=== PATIENT | female | born 1955 | race Caucasian/White ===

== ENCOUNTER → 2019-10-14 | Outpatient (CLI) | payer BC ==
[~2019-10-14] MED LIST: ALBU8.5H8 INH; BUDE10.2 INH; DIPH25CA61 PO; MULT-758 PO; Prednisone PO; TIOT18CA INH; albuterol INH
== END | disposition home or self-care (01) ==
LOC: STAR 10:59
PROVIDERS: ATTEND Internal Medicine
DX: Z01.818 Encounter for other preprocedural examination (principal); I51.7 Cardiomegaly; R13.10 Dysphagia, unspecified
CPT/HCPCS: 93005

== ENCOUNTER 2019-10-19 07:18 | Day surgery (SDC) | payer BC ==
[~2019-10-19] VITALS: Ht 160 cm; Wt 73.5 kg
[2019-10-19] MEDS ORDERED: LACTATED RINGERS 1,000 ML IV SCH (08:22)
[2019-10-19 08:23] VITALS: BP 142/63
[2019-10-19] MEDS ORDERED: PROPOFOL 10 MG/ML, 50ML ONE (09:10)
[2019-10-19] MEDS ORDERED: PROPOFOL 10 MG/ML, 20ML ONE (09:10)
[2019-10-19] MEDS ORDERED: EPHEDRINE 50 MG/ML, 1ML IVPush PRN (09:30)
[2019-10-19] MEDS ORDERED: MIDAZOLAM 1 MG/ML, 2ML IV PRN (09:30)
[2019-10-19] MEDS ORDERED: PROMETHAZINE 25 MG/ML, 1ML IV PRN (09:30)
[2019-10-19] MEDS ORDERED: FENTANYL PF 100 MCG/2ML IV PRN (09:30)
[2019-10-19] MEDS ORDERED: ALBUTEROL/IPRATROPIUM 2.5MG/0.5MG, 3 ML NPPB PRN (09:30)
[2019-10-19] MEDS ORDERED: DIAZEPAM 5 MG/ML, 2ML IVPush PRN (09:30)
[2019-10-19] MEDS ORDERED: DIPHENHYDRAMINE 50 MG/ML, 1ML IVPush PRN (09:30)
[2019-10-19] MEDS ORDERED: ONDANSETRON 2MG/ML, 2ML IV PRN (09:30)
[2019-10-19] MEDS ORDERED: EPHEDRINE 50 MG/ML, 1ML IM PRN (09:30)
[2019-10-19] MEDS ORDERED: ONDANSETRON ODT 8 MG PO PRN (09:30)
[2019-10-19] MEDS ORDERED: METOPROLOL 1 MG/ML, 5ML IV PRN (09:30)
[2019-10-19] MEDS ORDERED: hydrALAzine 20 MG/ML, 1ML IV PRN (09:30)
== END 2019-10-19 11:15 | disposition home or self-care (01) ==
LOC: OUT 07:18
PROVIDERS: ATTEND Internal Medicine
DX: Z12.11 Encounter for screening for malignant neoplasm of colon (principal); K57.30 Diverticulosis of large intestine without perforation or abscess without bleeding; K29.50 Unspecified chronic gastritis without bleeding; K21.9 Gastro-esophageal reflux disease without esophagitis; J30.2 Other seasonal allergic rhinitis; K44.9 Diaphragmatic hernia without obstruction or gangrene; K64.9 Unspecified hemorrhoids; F17.210 Nicotine dependence, cigarettes, uncomplicated; J44.9 Chronic obstructive pulmonary disease, unspecified; F19.90 Other psychoactive substance use, unspecified, uncomplicated; Z99.81 Dependence on supplemental oxygen; Z90.49 Acquired absence of other specified parts of digestive tract; Z88.0 Allergy status to penicillin; Z88.8 Allergy status to other drugs, medicaments and biological substances; Z88.6 Allergy status to analgesic agent; Z88.5 Allergy status to narcotic agent
CPT/HCPCS: 43239; 45378; 71045; 88305; J2704

== ENCOUNTER → 2019-10-25 | Outpatient (CLI) | payer BC | END | disposition home or self-care (01) | LOC: CFH 13:26 | PROVIDERS: ATTEND Internal Medicine | DX: Z12.31 Encounter for screening mammogram for malignant neoplasm of breast (principal); Z12.2 Encounter for screening for malignant neoplasm of respiratory organs; N64.89 Other specified disorders of breast; F41.9 Anxiety disorder, unspecified; F32.9 Major depressive disorder, single episode, unspecified; K21.9 Gastro-esophageal reflux disease without esophagitis; J96.11 Chronic respiratory failure with hypoxia; J43.2 Centrilobular emphysema; I25.10 Atherosclerotic heart disease of native coronary artery without angina pectoris; J98.4 Other disorders of lung; F17.210 Nicotine dependence, cigarettes, uncomplicated; Z88.0 Allergy status to penicillin; Z88.5 Allergy status to narcotic agent | CPT/HCPCS: 77067; G0297 ==

== ENCOUNTER 2019-12-04 22:25 | Inpatient (IN) | payer BC ==
[~2019-12-04] VITALS: Ht 165.1 cm; Wt 78.7 kg
[2019-12-04] MEDS ORDERED: MAGNESIUM SULFATE PMX 2GM/50ML 50 ML ONE (22:35)
[2019-12-04] MEDS ORDERED: methylPREDNISolone SOD SUCC 125 MG/2 ML ONE (22:35)
[2019-12-04] MEDS ORDERED: MONT10TA6 PO (22:59)
[2019-12-04] MEDS ORDERED: TINAZIDINE (22:59)
[2019-12-04] MEDS ORDERED: MAGNESIUM SULFATE PMX 2GM/50ML 50 ML IVPB ONE (23:00)
[2019-12-04] MEDS ORDERED: methylPREDNISolone SOD SUCC 125 MG/2 ML IV ONE (23:00)
[2019-12-04] MEDS ORDERED: SODIUM CHLORIDE FLUSH 10ML SYR IVF ONE (23:00)
[2019-12-04] MEDS ORDERED: CEFTRIAXONE PMX 1GM/50ML 50 ML ONE (23:09)
[2019-12-04 23:17] LABS: RAPID INFLUENZA A Negative (Negative); RAPID INFLUENZA B Negative (Negative)
[2019-12-04 23:17] LABS: BASOPHILS # (AUTO) 0.03 x10^3/uL (0-0.1); BASOPHILS % (AUTO) 0 % (0-1); EOSINOPHILS # (AUTO) 0.06 x10^3/uL (0-0.4); EOSINOPHILS % (AUTO) 1 % (1-7); LYMPHOCYTES # (AUTO) 1.18 x10^3/uL (1-3.4); LYMPHOCYTES % (AUTO) 9 % (22-44); MD NO; MEAN CORPUSCULAR HEMOGLOBIN 30.1 pg (27.0-34.8); MEAN CORPUSCULAR HGB CONC 32.8 g/dL (32.4-35.8); MEAN CORPUSCULAR VOLUME 91.6 fL (80-100); MEAN PLATELET VOLUME 7.3 fL (7.4-10.4); MONOCYTES # (AUTO) 1.36 x10^3/uL (0.2-0.8); MONOCYTES % (AUTO) 10 % (2-9); NEUTROPHILS # (AUTO) 10.41 x10^3/uL (1.8-6.8); NEUTROPHILS % (AUTO) 80 % (42-75); PLATELET COUNT 246 x10^3/uL (130-400); RED CELL DISTRIBUTION WIDTH 13.9 % (9.6-15.2)
[2019-12-04] MEDS: ALBUTEROL/IPRATROPIUM 2.5MG/0.5MG, 3 ML NPPB SCH ×2 (23:19→23:28)
[2019-12-04] MEDS ORDERED: ALBUTEROL/IPRATROPIUM 2.5MG/0.5MG, 3 ML ONE (23:21)
[2019-12-04] MEDS ORDERED: ONDANSETRON 2MG/ML, 2ML ONE (23:23)
--- NOTE | 2019-12-04 23:28 | NUR ---
PT STATES SHE FEELS "1%" BETTER. PT STATES SHE HAS NEVER BEEN INTUBATED. IS TIRED. PT COMPLAINING OF NAUSEA. INFORMED.
--- NOTE | 2019-12-04 23:29 | NUR ---
PT REQUESTING ANOTHER BREATHING TX. SECOND DUONEB STARTED AT THIS TIME.
[2019-12-04 23:30] LABS: ALANINE AMINOTRANSFERASE 84 U/L (12-78); ALBUMIN 3.4 g/dL (3.4-5.0); ANION GAP 5 mmol/L (5-15); CALCIUM 9.2 mg/dL (8.5-10.1); CHLORIDE 100 mmol/L (98-107); CREATININE 0.51 mg/dL (0.55-1.02)
[2019-12-04] MEDS ORDERED: CEFTRIAXONE PMX 1GM/50ML 50 ML IVPB ONE (23:30)
[2019-12-04] MEDS ORDERED: AZITHROMYCIN 500 MG in SODIUM CHLORIDE 0.9% 250 ML IVPB ONE (23:30)
[2019-12-04] MEDS ORDERED: ONDANSETRON 2MG/ML, 2ML IVPush ONE (23:30)
[2019-12-04 23:33] LABS: ALKALINE PHOSPHATASE 128 U/L (45-117); BILIRUBIN,TOTAL 0.7 mg/dL (0.2-1.0); TOTAL PROTEIN 7.6 g/dL (6.4-8.2); TROPONIN I < 0.015 ng/mL (0.000-0.045)
--- NOTE | 2019-12-05 00:18 | NUR ---
PT STATES SHE IS FEELING " A LITTLE BETTER". PT APPEARS TO BE DOING MODERATELY BETTER THAN INITIAL PRESENTATION. POC DISCUSSED. PT DENIES FURTHER NEEDS AT THIS TIME.
--- NOTE | 2019-12-05 00:37 | NUR ---
CALLED [facility] PER PT REQUEST. NO ANSWER. LEFT MESSAGE.
--- NOTE | 2019-12-05 00:53 | NUR ---
PT GIVEN CUP OF WATER PER MD LIRIANO. POC DISCUSSED. PT DENIES FURTHER NEEDS AT THIS TIME.
[2019-12-05] MEDS ORDERED: SODIUM CHLORIDE FLUSH 10ML SYR IVF PRN (01:00)
--- NOTE | 2019-12-05 01:29 | NUR ---
PT WITH NOW INCREASED WOB AND INCREASED SOB. THIS RN CONSULTED WITH [facility] AND IT WAS AGREED TO HOLD THE PT IN THE ED AT THIS TIME. RT CALLED FOR REPEAT BREATHING TX.
[2019-12-05] MEDS ORDERED: POLYETHYLENE GLYCOL 17 GM PACKET PO PRN (01:30)
[2019-12-05] MEDS ORDERED: ONDANSETRON 2MG/ML, 2ML IVPush PRN (01:30)
[2019-12-05] MEDS: CEFTRIAXONE PMX 1GM/50ML 50 ML IV SCH ×2 (01:30→03:29)
[2019-12-05] MEDS ORDERED: BISACODYL 10 MG SUPP PR PRN (01:30)
[2019-12-05] MEDS: AZITHROMYCIN 500 MG in SODIUM CHLORIDE 0.9% 250 ML IV SCH (01:30)
[2019-12-05] MEDS ORDERED: DOCUSATE 100 MG CAPSULE PO PRN (01:30)
[2019-12-05] MEDS ORDERED: methylPREDNISolone SOD SUCC 125 MG/2 ML IVPush SCH (01:30)
[2019-12-05] MEDS ORDERED: PROMETHAZINE 25 MG/ML, 1ML IM PRN (01:30)
[2019-12-05] MEDS: SODIUM CHLORIDE 0.9% 1,000 ML IV SCH ×2 (01:57→16:43)
--- NOTE | 2019-12-05 02:01 | NUR ---
PT ASSITED TO BEDSIDE COMMODE AND BACK INTO BED. PT DID DESAT TO 74% WITH INCREASED WOB. PT NOW BACK IN BED SATS INCREASED TO 94%. [facility] INFORMED. [facility] TO RECHECK PT.
[2019-12-05 02:12] LABS: TROPONIN I < 0.015 ng/mL (0.000-0.045)
--- NOTE | 2019-12-05 02:19 | NUR ---
[facility] RECHECKED PT. CHANGE ADMISSION TO ICU.
--- NOTE | 2019-12-05 02:41 | NUR ---
report called to icu nursesolange jones
[2019-12-05] MEDS ORDERED: ACETAMINOPHEN 325 MG TABLET ONE (03:39)
[2019-12-05] MEDS: ENOXAPARIN 40 MG/0.4 ML SQ SCH (03:54)
[2019-12-05] MEDS: ACETAMINOPHEN 325 MG TABLET PO PRN ×4 (03:55→23:11)
[2019-12-05 04:00] VITALS: BP 134/57
[2019-12-05] MEDS: methylPREDNISolone SOD SUCC 125 MG/2 ML IVPush SCH ×4 (04:57→23:11)
[2019-12-05] MEDS: ALBUTEROL/IPRATROPIUM 2.5MG/0.5MG, 3 ML NPPB SCH ×5 (06:00→22:50)
[2019-12-05 08:28] LABS: TROPONIN I < 0.015 ng/mL (0.000-0.045)
[2019-12-05] MEDS: BUDESONIDE 0.5 MG/2 ML INHA NPPB SCH ×2 (09:00→19:48)
[2019-12-05] MEDS: PANTOPRAZOLE 40MG TABLET PO SCH (10:00)
[2019-12-05] MEDS: GUAIFENESIN/DM 200-20MG, 10ML UDC PO PRN ×2 (10:05→18:09)
[2019-12-05] MEDS: GUAIFENESIN ER 600 MG TABLET PO SCH ×2 (12:23→20:33)
[2019-12-05] MEDS: MONTELUKAST 10 MG TABLET PO SCH (20:33)
[2019-12-06] MEDS: ALBUTEROL/IPRATROPIUM 2.5MG/0.5MG, 3 ML NPPB SCH ×7 (01:43→22:17)
[2019-12-06] MEDS: AZITHROMYCIN 500 MG in SODIUM CHLORIDE 0.9% 250 ML IV SCH (02:10)
[2019-12-06 04:38] LABS: BASOPHILS % (AUTO) 0 % (0-1); EOSINOPHILS % (AUTO) 0 % (1-7); LYMPHOCYTES # (AUTO) 0.31 x10^3/uL (1-3.4); LYMPHOCYTES % (AUTO) 3 % (22-44); MD NO; MEAN CORPUSCULAR HEMOGLOBIN 29.9 pg (27.0-34.8); MEAN CORPUSCULAR HGB CONC 32.5 g/dL (32.4-35.8); MEAN CORPUSCULAR VOLUME 92.2 fL (80-100); MEAN PLATELET VOLUME 7.7 fL (7.4-10.4); MONOCYTES # (AUTO) 0.44 x10^3/uL (0.2-0.8); MONOCYTES % (AUTO) 4 % (2-9); NEUTROPHILS % (AUTO) 93 % (42-75); PLATELET COUNT 237 x10^3/uL (130-400); RED BLOOD COUNT 3.71 x10^6/uL (3.82-5.3); RED CELL DISTRIBUTION WIDTH 13.9 % (9.6-15.2)
[2019-12-06 04:46] LABS: CHLORIDE 103 mmol/L (98-107)
[2019-12-06 04:52] LABS: ALANINE AMINOTRANSFERASE 94 U/L (12-78); ALBUMIN 2.7 g/dL (3.4-5.0); ALKALINE PHOSPHATASE 108 U/L (45-117); ANION GAP 3 mmol/L (5-15); BILIRUBIN,TOTAL 0.3 mg/dL (0.2-1.0); CALCIUM 9.2 mg/dL (8.5-10.1); CREATININE 0.45 mg/dL (0.55-1.02); TOTAL PROTEIN 6.6 g/dL (6.4-8.2)
[2019-12-06] MEDS: ENOXAPARIN 40 MG/0.4 ML SQ SCH (05:01)
[2019-12-06] MEDS: methylPREDNISolone SOD SUCC 125 MG/2 ML IVPush SCH ×2 (05:01→20:22)
[2019-12-06] MEDS: SODIUM CHLORIDE 0.9% 1,000 ML IV SCH (05:01)
[2019-12-06] MEDS: ACETAMINOPHEN 325 MG TABLET PO PRN (05:02)
[2019-12-06] MEDS ORDERED: FUROSEMIDE 20 MG/2 ML IV ONE (07:00)
[2019-12-06] MEDS: PANTOPRAZOLE 40MG TABLET PO SCH (08:52)
[2019-12-06] MEDS: GUAIFENESIN ER 600 MG TABLET PO SCH ×2 (08:53→20:21)
[2019-12-06] MEDS: BUDESONIDE 0.5 MG/2 ML INHA NPPB SCH ×2 (09:00→17:55)
[2019-12-06] MEDS ORDERED: SODIUM CHLORIDE NASAL SPRAY 45ML BOTTLE NAS PRN (09:30)
[2019-12-06] MEDS ORDERED: MAGNESIUM HYDROXIDE 8%, 30ML UDC PO PRN (09:30)
[2019-12-06] MEDS: NICOTINE 21 MG/24 HR PATCH.TD24 TD SCH (09:43)
[2019-12-06] MEDS: INSULIN LISPRO 100 UNITS/ML, PEN SQ-INSULIN SCH ×4 (10:25→20:22)
[2019-12-06] MEDS: GUAIFENESIN/DM 200-20MG, 10ML UDC PO PRN (13:34)
[2019-12-06] MEDS: CEFTRIAXONE PMX 1GM/50ML 50 ML IV SCH (14:27)
[2019-12-06 17:03] VITALS: BP 150/81
[2019-12-06 18:53] VITALS: BP 139/74
[2019-12-06] MEDS: MONTELUKAST 10 MG TABLET PO SCH (20:21)
[2019-12-07] MEDS: AZITHROMYCIN 500 MG in SODIUM CHLORIDE 0.9% 250 ML IV SCH (01:18)
[2019-12-07 01:22] VITALS: BP 140/72
[2019-12-07] MEDS: ACETAMINOPHEN 325 MG TABLET PO PRN (01:27)
[2019-12-07] MEDS: ALBUTEROL/IPRATROPIUM 2.5MG/0.5MG, 3 ML NPPB SCH ×5 (02:33→19:51)
[2019-12-07] MEDS: ENOXAPARIN 40 MG/0.4 ML SQ SCH (05:05)
[2019-12-07 06:21] LABS: ALANINE AMINOTRANSFERASE 104 U/L (12-78); ALKALINE PHOSPHATASE 119 U/L (45-117); BILIRUBIN,TOTAL 0.3 mg/dL (0.2-1.0); CALCIUM 9.3 mg/dL (8.5-10.1); CREATININE 0.54 mg/dL (0.55-1.02); TOTAL PROTEIN 6.8 g/dL (6.4-8.2)
[2019-12-07 06:29] LABS: ANION GAP 4 mmol/L (5-15); CHLORIDE 103 mmol/L (98-107)
[2019-12-07] MEDS: METOPROLOL TARTRATE 25 MG TAB PO SCH ×2 (06:33→16:13)
[2019-12-07 07:11] VITALS: BP 151/81
[2019-12-07] MEDS: GUAIFENESIN ER 600 MG TABLET PO SCH ×2 (07:37→21:01)
[2019-12-07] MEDS: methylPREDNISolone SOD SUCC 125 MG/2 ML IVPush SCH ×2 (07:37→21:01)
[2019-12-07] MEDS: INSULIN LISPRO 100 UNITS/ML, PEN SQ-INSULIN SCH ×4 (07:37→20:57)
[2019-12-07] MEDS: PANTOPRAZOLE 40MG TABLET PO SCH (07:37)
[2019-12-07] MEDS: NICOTINE 21 MG/24 HR PATCH.TD24 TD SCH (07:38)
[2019-12-07] MEDS: BUDESONIDE 0.5 MG/2 ML INHA NPPB SCH ×2 (08:02→19:51)
[2019-12-07] MEDS: CEFTRIAXONE PMX 1GM/50ML 50 ML IV SCH (14:43)
[2019-12-07] MEDS: MONTELUKAST 10 MG TABLET PO SCH (21:01)
[2019-12-07 21:06] VITALS: BP 141/66
[2019-12-08 00:41] VITALS: BP 139/72
[2019-12-08] MEDS: AZITHROMYCIN 500 MG in SODIUM CHLORIDE 0.9% 250 ML IV SCH (01:41)
[2019-12-08] MEDS: ALBUTEROL/IPRATROPIUM 2.5MG/0.5MG, 3 ML NPPB PRN (01:50)
[2019-12-08] MEDS: METOPROLOL TARTRATE 25 MG TAB PO SCH ×2 (05:17→17:02)
[2019-12-08] MEDS: ENOXAPARIN 40 MG/0.4 ML SQ SCH (05:17)
[2019-12-08] MEDS: INSULIN LISPRO 100 UNITS/ML, PEN SQ-INSULIN SCH ×4 (07:00→20:28)
[2019-12-08 07:09] VITALS: BP 133/70
[2019-12-08] MEDS: methylPREDNISolone SOD SUCC 125 MG/2 ML IVPush SCH ×2 (08:44→20:28)
[2019-12-08] MEDS: FUROSEMIDE 20 MG/2 ML IV SCH (08:44)
[2019-12-08] MEDS: GUAIFENESIN ER 600 MG TABLET PO SCH ×2 (08:44→20:28)
[2019-12-08] MEDS: PANTOPRAZOLE 40MG TABLET PO SCH (08:44)
[2019-12-08] MEDS: NICOTINE 21 MG/24 HR PATCH.TD24 TD SCH (08:45)
[2019-12-08] MEDS: BUDESONIDE 0.5 MG/2 ML INHA NPPB SCH ×2 (09:37→20:05)
[2019-12-08] MEDS: ALBUTEROL/IPRATROPIUM 2.5MG/0.5MG, 3 ML NPPB SCH ×3 (09:37→20:05)
[2019-12-08 12:27] VITALS: BP 137/69
[2019-12-08] MEDS: CEFTRIAXONE PMX 1GM/50ML 50 ML IV SCH (13:52)
[2019-12-08 17:04] VITALS: BP 152/75
[2019-12-08 19:11] VITALS: BP 145/82
[2019-12-08] MEDS: MONTELUKAST 10 MG TABLET PO SCH (20:28)
[2019-12-08] MEDS: ACETAMINOPHEN 325 MG TABLET PO PRN (20:35)
[2019-12-09] VITALS: BP 145/86
[2019-12-09] MEDS: ALBUTEROL/IPRATROPIUM 2.5MG/0.5MG, 3 ML NPPB PRN (00:11)
[2019-12-09] MEDS: AZITHROMYCIN 500 MG in SODIUM CHLORIDE 0.9% 250 ML IV SCH (01:36)
[2019-12-09] MEDS: METOPROLOL TARTRATE 25 MG TAB PO SCH (05:14)
[2019-12-09] MEDS: ENOXAPARIN 40 MG/0.4 ML SQ SCH (05:14)
[2019-12-09] MEDS: ALBUTEROL/IPRATROPIUM 2.5MG/0.5MG, 3 ML NPPB SCH (06:26)
[2019-12-09 06:50] VITALS: BP 146/81
[2019-12-09] MEDS: INSULIN LISPRO 100 UNITS/ML, PEN SQ-INSULIN SCH ×2 (07:00→11:00)
[2019-12-09] MEDS: PANTOPRAZOLE 40MG TABLET PO SCH (08:12)
[2019-12-09] MEDS: GUAIFENESIN ER 600 MG TABLET PO SCH (08:12)
[2019-12-09] MEDS: FUROSEMIDE 20 MG/2 ML IV SCH (08:13)
[2019-12-09] MEDS: NICOTINE 21 MG/24 HR PATCH.TD24 TD SCH (08:13)
[2019-12-09] MEDS: methylPREDNISolone SOD SUCC 125 MG/2 ML IVPush SCH (08:13)
[2019-12-09] MEDS ORDERED: GUAI600T31 PO (10:21)
[2019-12-09] MEDS ORDERED: METO25TA35 PO (10:21)
[2019-12-09] MEDS ORDERED: CEFD300C37 PO (10:21)
[2019-12-09] MEDS ORDERED: HYDR-826 PO (10:21)
[2019-12-09] MEDS ORDERED: PRED10TA PO (10:21)
== END 2019-12-09 13:16 | disposition home health service (06) | DRG 871 ==
LOC: SUATTDRO 12-05 01:08 → ED 12-05 03:03 → EDIP 12-05 03:06 → ICU 12-05 03:08 → 3N 12-06 15:12
PROVIDERS: ADMIT Internal Medicine; ATTEND Family Medicine
DX: A41.9 Sepsis, unspecified organism (principal); J18.9 Pneumonia, unspecified organism; J96.20 Acute and chronic respiratory failure, unspecified whether with hypoxia or hypercapnia; E87.2 Acidosis; J44.0 Chronic obstructive pulmonary disease with (acute) lower respiratory infection; J44.1 Chronic obstructive pulmonary disease with (acute) exacerbation; F17.200 Nicotine dependence, unspecified, uncomplicated; Z99.81 Dependence on supplemental oxygen; Z90.49 Acquired absence of other specified parts of digestive tract; Z88.0 Allergy status to penicillin; Z88.8 Allergy status to other drugs, medicaments and biological substances
CPT/HCPCS: 36415; 36600; 84145; 87400; 87486; 87581; 87633; 87798; 96365; 96368; 96375; 99291; J7626; 71045; 76700; 80053; 80074; 82803; 82962; 83605; 83880; 84484; 85025; 87040; 87081; 87880; 93005; 93306; 94640; G0378; J0456; J0696; J1650; J2405; J1815; J1940; J2930; J3475; J7030; J7050